=== PATIENT | female | born 1955 | race Caucasian/White ===

== ENCOUNTER 2017-07-31 05:56 | Day surgery (SDC) | payer OTHER ==
[2017-07-27 11:05] VITALS: BP 140/70
[2017-07-27 11:13] LABS: BASOPHILS % (AUTO) 1.1 % (0.0-5.0); EOSINOPHILS % (AUTO) 5.4 % (0.0-8.0); HEMATOCRIT 40.3 % (36-48); LYMPHOCYTES % (AUTO) 32.7 % (21.0-51.0); MEAN CORPUSCULAR HEMOGLOBIN 29.2 pg (27.0-33.0); MEAN CORPUSCULAR HGB CONC 33.5 g/dL (32.0-36.0); MEAN CORPUSCULAR VOLUME 87.2 fL (79-99); MONOCYTES % (AUTO) 9.7 % (3.0-13.0); NEUTROPHILS % (AUTO) 51.1 % (40.0-77.0); PLATELET COUNT (AUTO) 254 K/uL (130-400); RED BLOOD CELL COUNT(AUTO) 4.62 MIL/uL (4.00-5.50); RED CELL DISTRIBUTION WIDTH 13.7 % (11.0-15.5)
[2017-07-27 11:23] LABS: CREATININE 0.8 mg/dL (0.5-1.5); POTASSIUM 4.4 mmol/L (3.5-5.1)
[2017-07-27 11:25] LABS: INR 0.92 (0.85-1.15); PARTIAL THROMBOPLASTIN TIME 24.5 SEC (26.3-35.5); PROTHROMBIN TIME 9.7 SEC (9.6-11.6)
[~2017-07-31] VITALS: Ht 160 cm; Wt 85.9 kg
[2017-07-31] VITALS (7 sets, daily range): BP systolic 105–138; BP diastolic 54–80
[~2017-07-31 05:56] MED LIST: ADAL40KI SQ; ALEN70TA2 PO; ASPI-1181 PO; ATOR10TA69 PO; AZAT50TA PO; CHOL50004 PO; CLON1TAB4 PO; FOLI0.8T PO; KRIL1CAP12 PO; LEFL20TA18 PO; LISI-617 PO; MAGN250T10 PO; MESA0.37 PO; OMEP20CA10 PO; TRAM50TA4 PO; UBID100C45 PO
[2017-07-31] MEDS ORDERED: SODIUM CHLORIDE 0.9% 1000ML 1,000 ML IV SCH (06:00)
[2017-07-31] MEDS ORDERED: ASPI-1181 PO (07:07)
[2017-07-31] MEDS ORDERED: BUPIVACAINE/PF 0.25% 30ML VIAL IJ ONE (07:14)
[2017-07-31] MEDS ORDERED: CEFAZOLIN 1GM / D5W 50ML 150 ML ONE (07:15)
[2017-07-31] MEDS ORDERED: LIDOCAINE HCL 1% 20 ML VIAL ONE ×2 (07:16→07:18)
[2017-07-31] MEDS ORDERED: MIDAZOLAM HCL 1 MG/ML 2ML VIAL ONE ×2 (07:57→08:05)
[2017-07-31] MEDS ORDERED: MEPERIDINE-PF 25 MG/ML SYG ONE ×2 (07:57→08:05)
[2017-07-31] MEDS ORDERED: ACETAMINOPHEN 325 MG TAB PO PRN (08:45)
[2017-07-31] MEDS ORDERED: ACETAMINOPHEN-CODEINE 300/30MG TAB PO PRN ×2 (08:45)
== END 2017-07-31 10:50 | disposition home or self-care (01) ==
LOC: DAH 05:56
PROVIDERS: ATTEND Internal Medicine Cardiovascular Disease
DX: I63.40 Cerebral infarction due to embolism of unspecified cerebral artery (principal); E78.2 Mixed hyperlipidemia; I73.9 Peripheral vascular disease, unspecified; Z68.33 Body mass index [BMI] 33.0-33.9, adult
CPT/HCPCS: 33282; 36415; 80048; 85025; 85610; 85730; 93005; A4606; C1764; J0690; J2175 ×2; J2250 ×2; J3490; J7030; 99152; 99153

== ENCOUNTER 2022-11-21 06:19 | Day surgery (SDC) | payer OTHER ==
[2022-11-16 16:12] VITALS: BP 166/83
[2022-11-16 16:12] LABS: EOSINOPHILS % (AUTO) 4.4 % (0.0-8.0); HEMATOCRIT 42.4 % (36-48); LYMPHOCYTES % (AUTO) 29.8 % (21.0-51.0); MEAN CORPUSCULAR HEMOGLOBIN 28.1 pg (27.0-33.0); MEAN CORPUSCULAR HGB CONC 32.5 g/dL (32.0-36.0); MEAN CORPUSCULAR VOLUME 86.4 fL (79-99); MONOCYTES % (AUTO) 9.7 % (3.0-13.0); NEUTROPHILS % (AUTO) 54.8 % (40.0-77.0); PLATELET COUNT (AUTO) 338 K/uL (130-400); RED BLOOD CELL COUNT(AUTO) 4.91 MIL/uL (4.00-5.50); WHITE BLOOD COUNT (AUTO) 7.7 K/uL (4.8-10.8)
[2022-11-16 16:19] LABS: CREATININE 0.9 mg/dL (0.5-1.5); POTASSIUM 3.8 mmol/L (3.5-5.1)
[2022-11-16 16:52] LABS: INR 0.93 (0.85-1.15); PROTHROMBIN TIME 9.8 SEC (9.6-11.6)
[2022-11-16 16:53] LABS: PARTIAL THROMBOPLASTIN TIME 26.3 SEC (26.3-35.5)
[~2022-11-21] VITALS: Ht 162.6 cm; Wt 79.5 kg
[~2022-11-21 06:19] MED LIST changes: -ALEN70TA2 PO; -ASPI-1181 PO; +ASPI-1443 PO; -CHOL50004 PO; +CHOL500045 PO; -CLON1TAB4 PO; +DENO60DI SQ; +FOLI0.4T6 PO; -FOLI0.8T PO; +FURO20TA4 PO; +GABA-529 PO; -KRIL1CAP12 PO; -LEFL20TA18 PO; -LISI-617 PO; -MAGN250T10 PO; -OMEP20CA10 PO; +OMEP20CA12 PO; +TRAZ-185 PO; -UBID100C45 PO; +VITAMIN B12 PO
[2022-11-21 07:30] VITALS: BP 158/81
[2022-11-21] MEDS ORDERED: 0.9% NACL 500ML IV.SOLN 500 ML IV ONE (07:50)
[2022-11-21] MEDS ORDERED: LIDOCAINE HCL 1% MDV 50ML VIAL ONE (09:22)
[2022-11-21 10:30] VITALS: BP 142/74
== END 2022-11-21 11:05 | disposition home or self-care (01) ==
LOC: DAH 06:19
PROVIDERS: ATTEND Internal Medicine Cardiovascular Disease
DX: Z45.09 Encounter for adjustment and management of other cardiac device (principal); I10 Essential (primary) hypertension; E78.5 Hyperlipidemia, unspecified; K21.9 Gastro-esophageal reflux disease without esophagitis; Z98.890 Other specified postprocedural states; Z90.710 Acquired absence of both cervix and uterus; Z90.722 Acquired absence of ovaries, bilateral; Z82.49 Family history of ischemic heart disease and other diseases of the circulatory system; Z83.3 Family history of diabetes mellitus; Z80.1 Family history of malignant neoplasm of trachea, bronchus and lung; Z87.891 Personal history of nicotine dependence; Z72.89 Other problems related to lifestyle; Z88.8 Allergy status to other drugs, medicaments and biological substances; Z79.82 Long term (current) use of aspirin; Z79.899 Other long term (current) drug therapy; Z79.01 Long term (current) use of anticoagulants
CPT/HCPCS: 80048; 85025; 85610; 85730; 36415; 93005; 33286; A4649; J7040; J3490; A4215; A4222; A4221; A4663; A4216; A4606; A4223 ×3